=== PATIENT | male | born 1940 ===

== ENCOUNTER → 2016-10-13 | Outpatient (CLI) | payer OTHER ==
[~2016-10-13] MED LIST: ASPIR 8181 M1; COQ-10100 MG; FISH OIL 1,001000 M2; LIPITOR10 MG
--- NOTE | ~2016-10-13 | EKG ---
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 : 1940 Requested By: Marek Vazquez Order Number: [id number] MD: Richard Reese Measurements Intervals [place] Rate: 68 P: 46 AL: 168 QRS: 9 QRSD: 86 T: 34 QT: 394 QTc: 420 Interpretive Statements Sinus rhythm Multiple ventricular premature complexes Abnormal R-wave progression, early transition No previous ECG available for comparison Electronically Signed On 10-13-2016 7:52:46 [employer]IOR [employer] by Richard Reese [email or web address] <ELECTRONICALLY SIGNED> By: Richard Reese MD, [facility] 10/13/16 [id number] Richard Reese MD, FACC /EPI
== END | disposition home or self-care (01) ==
LOC: LITH 05:52
DX: N20.0 Calculus of kidney (principal)